=== PATIENT | male | born 1980 | race Two or more races ===

== ENCOUNTER 2025-09-02 22:45 | Emergency (ER) | payer OTHER, SELFPAY ==
--- NOTE | ~2025-09-02 | CT_ITS ---
CLINICAL HISTORY: headache CT head without contrast Comparison: None provided. Findings: No intracranial mass, midline shift, hydrocephalus, or acute hemorrhage. Small to moderate mucous retention cyst present at the right sphenoid sinus. There is minimal mucosal thickening at the right maxillary sinus with [id number] mucosal thickening at the ethmoid air cells. Minimal mucosal thickening also present at the bilateral frontal sinuses. The bilateral mastoid air cells appear clear. No acute skull fracture. Impression: 1. No acute intracranial abnormality. No acute intracranial hemorrhage. This document has been electronically signed by: Trey Curry MD on 09/03/2025 02:24:01
[2025-09-02 22:46] VITALS: BP 146/108; PULSE 88; RESP 18; TEMP 36.7; O2SAT 99; BMI 26.9
[2025-09-02 23:07] LABS: MANUAL DIFF FLAG NO
[2025-09-02 23:09] LABS: Hematocrit 45.2 % (42.0-52.0); Hemoglobin 15.8 g/dl (14.0-18.0); Imm Gran Abs Auto 0.02 X10*3/uL (0.00-0.03); Imm Gran Pct Auto 0.2 % (0.0-0.4); Lymphocytes Absolute Auto 2.9 X10*3/uL (1.2-4.9); Mean Corpuscular HGB Conc 35.0 g/dl (31.0-36.0); Mean Corpuscular Hemoglobin 29.3 pg (27.0-33.0); Mean Corpuscular Volume 83.7 fL (80.0-98.0); NRBC Abs Auto 0.000 X10*3/uL (0.0-0.012); NRBC Pct Auto 0.0 /100WBC (0.0-0.2); Platelet Count 205 X10*3/uL (160-400); Red Blood Count 5.40 X10*6/uL (4.60-5.80); White Blood Count 9.3 X10*3/uL (4.8-10.8)
--- OUTSIDE RECORDS SUMMARY | 2025-09-02 23:10 | XMS_ITS | Clinical Summary ---
Author Organization [address] [facility] Address [address] [place] [address] Phone Care Team Providers Care Regulatory Affairs Assistant Name Role Phone Linette Cadena MD Primary Care Provider [phone] Allergies No known active allergies Medications cranberry fruit concentrate 125 mg tablet,disintegr ating 2 Active tacrolimus (PROTOPIC) 0.1 % ointment 0 Active triamcinolone (KENALOG) 0.1 % ointmentIndicati ons:Rash and other nonspecific skin eruption Apply to affected areas on arm and leg twice daily for 2 weeks. 30 g 5 Active zinc oxide 13 % creamIndications :Pruritus ani Apply rectally twice daily for 2 weeks. 1 each 1 5 Active acetaminophen (TYLENOL 8 HOUR) 650 mg 8 hr tablet Take 2 tablets (1,300 mg total) by mouth every 8 (eight) hours if needed for headaches. Do not crush, chew, or split. Active albuterol HFA (PROAIR HFA ; PROVENTIL HFA ; VENTOLIN HFA) 90 mcg/actuation inhalerIndicatio ns:Wheezing Inhale 2 puffs by mouth every 6 (six) hours if needed for wheezing. 6.7 g 1 5 Active Active Problems Problem Noted Date Diagnosed Date Spinal cord lesion ([facility] V24, [facility] V28) Overview (10/16/2024): Lumbar 08/18. Follows Dr. Gresham Vitiligo 04/10/2019 Overweight (BMI 25.0-29.9) 08/16/2018 Mitral regurgitation 04/03/2018 Overview (10/16/2024): ECHO 04/17 Abnormal EKG 02/15/2018 Overview (10/16/2024): ER 01/15- nonspecific findings, trace mitral regurgitation, otherwise normal Frequent epistaxis 02/02/2018 Vertigo 02/02/2018 Encounters Date Type Department Care Team Description 07/18/2025 Telephone [facility] Hematology Oncology [address] [place] [address] Audra Swift DO 06/17/2025 Telephone [facility] Hematology Oncology [address] [place] [address] Audra Swift DO from Last 3 Months Immunizations Immunization Administration Dates Next Due Influenza Quadravalent, MDCK , 0.5ml, preservative free (Flucelvax) 6mo and older 08/16/2018 Tdap Tetanus diptheria acell ular pertussis (Boostrix; Adacel) 7yo and older 02/15/2018 Surgical History Surgery Date Site/Laterality Comments OTHER SURGICAL HISTORY PROCEDURE: DENIES PREVIOUS SURGERY Medical History Medical History Date Comments Patient denies medical problems DX:Patient denies medical problems Vitiligo 04/10/2019 DX:Vitiligo Family History Medical History Relation Name Comments Other: denies Other 1 Relation Name Status Comments Other 1 Other 2 Social History Tobacco Use Types Packs/Day Years Used Date Smoking Tobacco: Former Cigarettes Q uit: 10/31/2010 Smokeless Tobacco: Never Tobacco Cessation:Counseling Given: Not Answered Alcohol Use Standard Drinks/Week Comments No 0 (1 standard drink = 0.6 oz pur e alcohol) Sex and Gender Information Value Date Recorded Sex Assigned at Not on file Legal Sex Male 8:41 AM EST Gender Identity Not on file Sexual Orientation Not on file Obstetrics History Last Filed Vital Signs Vital Sign Reading Time Taken Comments Blood Pressure 128/85 04/29/2025 9:28 AM EDT Pulse 72 04/29/2025 9:28 AM EDT Temperature 36.9 C (98.4 F) 04/29/2025 9:28 AM EDT Respiratory Rate - - Oxygen Saturation 99% 04/29/2025 9:28 AM EDT Inhaled Oxygen Concentration - - Weight 97.1 kg (214 lb) 04/29/2025 9:28 AM EDT Height 188 cm (6' 2 ) 04/11/2025 11:20 AM EDT Body Mass Index 27.48 04/11/2025 11:20 AM EDT Plan of Treatment Upcoming Encounters Date Type Department Care Team (Late st Contact Info) Description 10/11/2025 11:00 AM EST Office Visit Adult Medicine - [facility] [address] [place] [address] Ivy Duffy NP [address] [place] [address] Health Maintenance Due Date Last Done Comments Hepatitis B Vaccines (1 of 3 - 19+ 3-dose series) 02/13/2000 HPV Vaccines (1 - 3-dose SCD M series) 02/13/2008 HIV Screening 10/03/2022 Social Influencers of Health Screening 10/03/2022 Depression Screening 10/31/2024 COVID-19 Vaccine (4 - 2024-2 6 season) 2025 11/05/2021, 02/24/2021, 02/03/2021 Influenza Vaccine (#1) 2025 08/16/2018 DTaP,Tdap,and Td Vaccines (2 - Td or Tdap) 02/16/2028 02/15/2018 Cholesterol Screening (Lipid Panel) 01/30/2030 01/30/2025, 08/16/2018 RSV Immunization Adult Patients (1 - 1-dose 75+ series) 02/13/2056 Hepatitis C Screening Completed 01/30/2025 HIB Vaccines Aged Out No longer eligi ble based on patient's age to complete this topic Hepatitis A Vaccines Aged Out No long er eligible based on patient's age to complete this topic IPV Vaccines Aged Out No longer eligi ble based on patient's age to complete this topic MMR Vaccines Aged Out No longer eligi ble based on patient's age to complete this topic Meningococcal ACWY Vaccine Aged Out N o longer eligible based on patient's age to complete this topic Meningococcal B Vaccine Aged Out No l onger eligible based on patient's age to complete this topic Pneumococcal Vaccine: Pediatrics (0 to 5 Years) and At-Risk Patients (6 to 49 Years) Aged Out No longer eligible b ased on patient's age to complete this topic RSV Immunization Patients Under 20 months Aged Out No longer eligible b ased on patient's age to complete this topic Varicella Vaccines Aged Out No longer eligible based on patient's age to complete this topic Procedures Procedure Name Priority Date/Time Associated Diagnosis Comments HEPATITIS C ANTIBODY Routine 01/30/2025 9:54 AM EDT Encounter for hepatitis C screening test for low risk patient LIPID PANEL WITH REFLEX TO DIRECT LDL Routine 01/30/2025 9:54 AM EDT Screening, lipid from Last 3 Months or Most Recently Relevant to Health Maintenance Results * Hepatitis C antibody (01/30/2025 9:54 AM EDT) [facility] Hepatitis C Antibody Negative Negative LAB CHEMISTRY METHOD 01/30/2025 5:03 PM EDT [facility] Blood Venous blood specimen / Unknown Venipuncture / Unknown 01/30/2025 9:54 AM EDT 01/30/2025 9:55 AM EDT C Fernando Cadena MD LAB BLOOD ORDERABLES Final Res ult [facility] [address] [place] [address], [place] [phone] * (ABNORMAL) Lipid panel with reflex to direct LDL (01/30/2025 9:54 AM EDT) [facility] Cholesterol 161 0 - 200 mg/dL LAB CHEMISTRY METHOD 01/30/2025 3:04 PM EDT [facility] Triglycerides 209(H) 0 - 150 mg/dL LAB CHEMISTRY METHOD 01/30/2025 3:04 PM EDT [facility] HDL 36(L) >=40 mg/dL LAB CHEMISTRY METHOD 01/30/2025 3:04 PM EDT [facility] LDL Calculated 83 0 - 100 mg/dL LAB CHEMISTRY METHOD 01/30/2025 3:04 PM EDT [facility] VLDL Cholesterol Chaim 41.8 mg/dL LAB CHEMISTRY METHOD 01/30/2025 3:04 PM EDT [facility] Non HDL Chol. (LDL+VLDL) 125 <145 mg/dL LAB CHEMISTRY METHOD 01/30/2025 3:04 PM EDT [facility] Chol/HDL Ratio 4.5(H) 0.0 - 4.4 LAB CHEMISTRY METHOD 01/30/2025 3:04 PM EDT [facility] Blood Venous blood specimen / Unknown Venipuncture / Unknown 01/30/2025 9:54 AM EDT 01/30/2025 9:55 AM EDT C Fernando Cadena MD LAB BLOOD ORDERABLES Final Res ult [facility] [address] [place] [address], from Last 3 Months or Most Recently Relevant to Health Maintenance Insurance [facility] [employer] Care Teams Regulatory Affairs Assistant Relationship Specialty Start Date End Date Linette Cadena MD [address] [place] [id number] PCP - General Internal Medicine 02/10/16
--- OUTSIDE RECORDS SUMMARY | 2025-09-02 23:10 | XMS_ITS ---
Author Name [facility] Organization Unknown Care Team Organization Name Specialty Phone Email Start Date End Da monique [facility] Jhony King [facility] 09/07/2022 06/18/2024
[2025-09-02 23:25] LABS: Alanine Aminotransferase 33 U/L (0-40); Albumin Level 4.8 g/dL (3.5-5.0); Alkaline Phosphatase 91 U/L (39-117); Anion Gap 11 (12-20); Aspartate Amino Transferase 31 U/L (5-37); Blood Urea Nitrogen 16 mg/dL (9-16); Calcium 9.3 mg/dL (8.4-10.2); Carbon Dioxide 25 mmol/L (22-29); Chloride 109 mmol/L (96-108); Creatinine Clr Calc Pharmacy 132.0; Estimated Glomerular Filt Rate > 60; Potassium 4.4 mmol/L (3.3-5.1); Sodium 141 mmol/L (135-145); Total Protein 7.8 g/dL (6.5-8.0)
[2025-09-02 23:43] VITALS: BP 139/95; PULSE 83; RESP 18; TEMP 36.7; O2SAT 96
[2025-09-03] MEDS: Butalb/Acetamin/Caff 50/325/40 TABLET 1 TAB PO (00:25)
[2025-09-03 00:43] LABS: Erythrocyte Sedimentation Rate 1 MM/HR (0-15)
--- NOTE | 2025-09-03 01:12 | ED_ITS ---
HPI - General Adult General Chief complaint: Headache Stated complaint: headache Time Seen by Provider: 09/02/25 23:44 Source: patient, RN notes reviewed and old records reviewed Mode of arrival: ambulatory Limitations: no limitations History of Present Illness ED Provider: Dena ROSALES narrative: 45-year-old male presents for evaluation of a headache pain He reports having a headache for a few months pain He reports that over the last week his symptoms have been worsening. His headache has been hurting more. He has some nausea and vomiting and his headache woke him up from sleep 2 days ago. Denies any trauma to the head or neck pain He reports that his symptoms seemed to worsen after he was diagnosed with a sinus infection about 6 months ago He reports a history of ?a cyst on my spine that I get monitored with MRI once per year. He denies any other medical problems. Denies any fevers, chills, cough, shortness of breath pain His pain typically is improved with ibuprofen and/or Tylenol but over last week this has not been helping Related Data Allergies Allergy/AdvReac Type Severity Reaction Status Date / Time No Known Allergies (No Known Allergy Verified 09/02/25 22:48 Allergies*) Review of Systems 2 Constitutional: Constitutional: Denies body ache(s), Denies chills, Denies fever(s), Denies frequent falls and Reports headache(s) Eyes: Eyes: Denies blurry vision, Denies irritation, Denies itchy eyes and Denies photophobia ENT: Denies vertigo, Denies dizziness and Reports headache(s) Cardiovascular: Cardiovascular: Denies chest pain and Denies dyspnea on exertion Respiratory: Respiratory: Denies cough and Denies dyspnea on exertion Gastrointestinal: Gastrointestinal: Denies abdominal pain, Reports nausea and Reports vomiting Musculoskeletal: Musculoskeletal: Denies back pain Neurologic: Denies vertigo, Denies dizziness, Denies frequent falls and Reports headache(s) Allergic/Immunologic: Allergic/Immunologic: Denies itchy eyes PMFSH Social History Social History Advance Directives: No Advance Directives Information Provided: Yes Physical Exam ED Vital Signs: Vital Signs - 24 hr 09/02/25 22:46 09/02/25 23:43 09/03/25 02:08 Temperature 98.1 F 98.1 F Pulse Rate 88 83 71 Respiratory Rate 18 18 16 Blood Pressure 146/108 H 139/95 H 139/91 H Pulse Oximetry 99 96 95 Oxygen Delivery Method Room Air Room Air Room Air BMI result Body Mass Index 26.9 Const General: healthy appearing, comfortable, no acute distress, alert and awake Nutritional Appearance: well nourished Orientation/consciousness: patient oriented x3 HENMT Head: Yes normocephalic and Yes atraumatic Eyes Eyelids: Yes eyelids normal Conjunctivae: conjunctivae normal Sclerae: sclerae normal Corneas: corneas normal Pupils: Equal, round and reactive pupils present EOM: EOMs intact bilaterally Direct Ophthalmoscopy: No photophobia Neck Neck: Yes full ROM Resp Effort & Inspection: normal respiratory effort, able to speak in complete sentences and not labored Skin General skin exam: elasticity normal Neuro General: patient oriented x3 Cranial nerves: Yes CN's II-XII intact bilaterally, Yes Equal, round and reactive pupils present and Yes Bilaterally intact EOM present Cognition (Neuro): normal cognition Extrem Other: Moving all extremities well without any obvious deformities Course Reevaluation(s) Reevaluation #1: The patient resting comfortably on re-evaluation, still awaiting CT scan. Time: 02:09 Reevaluation #2: I [facility] PA-C have accepted care of the patient and signed out pending CT brain and likely discharge home CT brain:Impression: 1. No acute intracranial abnormality. No acute intracranial hemorrhage. This document has been electronically signed by: Trey Curry MD on 09/03/2025 02:24:01 Medications Administered Discontinued Medications Generic Name Dose Route Start Last Admin Trade Name Freq PRN Reason Stop Dose Admin Acetaminophen/Butalbital/Caffeine 1 tab 09/03/25 00:14 09/03/25 00:25 Butalb/Acetamin/Caff 50/325/40 Tablet PO 09/03/25 00:15 1 tab ONCE ONE Administration Ketorolac Tromethamine 30 mg 09/03/25 00:14 09/03/25 00:25 Ketorolac Tromethamine 30 Mg/Ml Vial IM 09/03/25 00:15 30 mg ONCE ONE Administration Medical Decision Making Medical Decision Making MDM Narrative: 45-year-old male presents for evaluation of a headache. His headache has been present for the last few months but worsening over the last week. Has not been any trauma of the head or neck. He has no focal neurologic deficits, has not NIH stroke score of 0. He is not anticoagulated. Given that he has never had a CT scan in his head before in his own aged 41 we will get a CT scan to evaluate for intracranial pathology. I have a low suspicion for CVA. It does not have any infectious symptoms. We will treat his headache with Toradol and Fioricet Differential Diagnosis Differential Diagnoses: The differential diagnosis associated with the presentation includes Acute headache Tension headache Migraine headache Intracranial hemorrhage Intracranial mass Sinusitis Lab Data MDM Lab Attestation statement: I reviewed the patient's lab results. No leukocytosis or anemia. Normal platelet count. No electrolyte abnormalities warranting dimension. ESR of 1 09/02/25 23:01 09/02/25 23:00 Labs: Lab Results 09/02/25 09/02/25 09/03/25 Range/Units 23:00 23:01 23:01 WBC 9.3 (4.8-10.8) X10*3/uL RBC 5.40 (4.60-5.80) X10*6/uL Hgb 15.8 (14.0-18.0) g/dl Hct 45.2 (42.0-52.0) % MCV 83.7 (80.0-98.0) fL MCH 29.3 (27.0-33.0) pg MCHC 35.0 (31.0-36.0) g/dl RDW 12.3 (11.0-16.0) % Plt Count 205 (160-400) X10*3/uL MPV 9.7 (9.4-12.4) fL Immature Gran % (Auto) 0.2 (0.0-0.4) % Neut % (Auto) 60.6 (45-73) % Lymph % (Auto) 30.7 (20-40) % [place] % (Auto) 6.5 (2-11) % Eos % (Auto) 1.5 (0-4) % Baso % (Auto) 0.5 (0-2) % Lymph # (Auto) 2.9 (1.2-4.9) X10*3/uL [place] # (Auto) 0.6 (0.1-1.2) X10*3/uL Eos # (Auto) 0.1 (0.0-0.4) X10*3/uL Baso # (Auto) 0.1 (0.0-0.2) X10*3/uL Abs Immat Gran (auto) 0.02 (0.00-0.03) X10*3/uL Absolute Neuts (auto) 5.7 (2.0-8.3) x10*3/uL Absolute Nucleated RBC 0.000 (0.0-0.012) X10*3/uL Nucleated RBC % (auto) 0.0 (0.0-0.2) /100WBC ESR 1 (0-15) MM/HR Sodium 141 (135-145) mmol/L Potassium 4.4 (3.3-5.1) mmol/L Chloride 109 H (96-108) mmol/L Carbon Dioxide 25 (22-29) mmol/L Anion Gap 11 L (12-20) BUN 16 (9-16) mg/dL Creatinine 0.83 (0.5-1.4) mg/dL Estim Creat Clear Calc 132.0 Estimated GFR > 60 Random Glucose 92 (60-115) mg/dL Calcium 9.3 (8.4-10.2) mg/dL Total Bilirubin 0.4 (0.0-1.0) mg/dL AST 31 (5-37) U/L ALT 33 (0-40) U/L Alkaline Phosphatase 91 (39-117) U/L Total Protein 7.8 (6.5-8.0) g/dL Albumin 4.8 (3.5-5.0) g/dL Discharge Plan Discharge Clinical Impression: Headache Patient Disposition: Home, Self-Care Instructions: Acute Headache (ED) Additional Instructions: Your workup in the ER today was reassuring. This includes your exam and your CT scan. Your labs did not show any concerning abnormalities You may continue ibuprofen/Tylenol as needed for pain. Follow up with your primary doctor, return for new or worsening symptoms Print Language: Maltese
[2025-09-03 02:08] VITALS: BP 139/91; PULSE 71; RESP 16; O2SAT 95
[2025-09-03 04:09] VITALS: BP 124/90; PULSE 76; RESP 16; TEMP 36.6; O2SAT 96
[2025-09-03 04:10] VITALS: BP 124/90; PULSE 76; RESP 16; TEMP 36.6; O2SAT 96
== END 2025-09-03 04:10 | disposition home or self-care (01) ==
PROVIDERS: Physician Assistant; Emergency Provider Emergency Medicine; PCP Pediatrics
DX: R51.9 Headache, unspecified (principal); R11.2 Nausea with vomiting, unspecified
CPT/HCPCS: 36415; 70450; 80053; 85025; 85652; 96372; 99284; J1885

== ENCOUNTER → 2025-09-03 00:14 | Outpatient (BNV) | payer OTHER, SELFPAY | PROVIDERS: Emergency Provider Emergency Medicine; PCP Pediatrics; Visit Provider Radiology Diagnostic Radiology | DX: R51.9 Headache, unspecified (principal) | CPT/HCPCS: 70450 ==